=== PATIENT | female | born 1950 | race Two or more races ===

== ENCOUNTER 2023-06-22 13:56 | Outpatient (CLI) | payer OTHER ==
[~2023-06-22 13:56] MED LIST: ASPIR 8181 MG; ASPIR-TRIN325 MG; CALCIUM1 TAB; COLACE50 MG; METFORMIN HCL500 MG; METOPROLOL SUCC25 MG; SIMVASTATIN20 MG
== END 2023-06-22 14:04 | disposition home or self-care (01) ==
LOC: RAD 13:56
PROVIDERS: ATTEND Physical Medicine & Rehabilitation
DX: M54.2 Cervicalgia (principal)

== ENCOUNTER 2023-10-28 13:57 | Outpatient (CLI) | payer OTHER | END 2023-10-28 14:02 | disposition home or self-care (01) | LOC: RAD 13:57 | PROVIDERS: ATTEND Physical Medicine & Rehabilitation | DX: M25.562 Pain in left knee (principal) ==